=== PATIENT | male | born 1945 | race Caucasian/White ===

== ENCOUNTER → 2022-06-03 11:14 | Outpatient (CLI) | payer MEDICARE, SELFPAY ==
--- NOTE | 2022-06-03 11:23 | DI.CT.S_ITS ---
PROCEDURE: CT UE RT WO CON INDICATIONS: PRIMARY OSTEOARTHRITIS TECHNIQUE: Noncontrast 0.8 mm thick sections acquired from the acromioclavicular joint to the inferior scapula using [facility] CT shoulder protocol, with coronal and sagittal reformatting. COMPARISON: None. FINDINGS: Image quality: Excellent. Bones: [id number] acromioclavicular joint osteoarthritic changes are seen with joint space narrowing and subchondral sclerosis. Severe glenohumeral joint osteoarthritic changes are noted with extensive subchondral sclerosis, near complete loss of joint space and prominent inferior marginal osteophyte formation. No acute shoulder fracture or dislocation. No suspicious intraosseous lesions. Visualized right upper ribs are intact. Soft tissues: There is no full-thickness rotator cuff tendon rupture. No calcified intra-articular loose body is seen. No significant joint effusion or subacromial subdeltoid bursal fluid. No abnormal soft tissue calcifications. Mild supraspinatus muscle atrophy is seen on sagittal images. Visualized right upper lung field is clear. IMPRESSION: 1. Mild to moderate acromioclavicular joint osteoarthritis and severe glenohumeral joint osteoarthritis. No shoulder fracture or dislocation. No suspicious bony lesions. 2. No full-thickness rotator cuff tendon rupture. Mild supraspinatus muscle atrophy. 3. No significant joint effusion or subacromial subdeltoid bursal fluid. No abnormal soft tissue calcifications. No gross calcified intra-articular loose bodies. Dictated by: Flaquito Jaramillo M.D. on 06/03/2022 at 12:55 Approved by: Flaquito Jaramillo M.D. on 06/03/2022 at 13:03
[2022-06-03 13:40] LABS: Add Manual Diff / Slide Review NO; Basophils Absolute Auto 100 /uL (0-100); Basophils Percent Auto 1.1 % (0-2); Eosinophils Absolute Auto 100 /uL (0-450); Eosinophils Percent Auto 1.4 % (2-4); Hematocrit 45.9 % (41-53); Hemoglobin 15.2 g/dL (13.5-17.5); Lymphocytes Absolute Auto 2100 /uL (1100-4500); Lymphocytes Percent Auto 29.9 % (25-40); Mean Corpuscular HGB Conc 33.1 % (30-36); Mean Corpuscular Hemoglobin 33.1 PG (26-34); Mean Corpuscular Volume 99.9 fL (80-100); Monocytes Absolute Auto 800 /uL (0-900); Monocytes Percent Auto 11.6 % (3-14); Neutrophils Absolute Auto 3900 /uL (1500-7000); Platelet Count 202 X10^3/uL (150-400); Red Blood Cell Count 4.59 X10^6/uL (4.5-5.9); Red Cell Distribution Width 12.9 % (11.6-14.8); White Blood Cell Count 6.9 X10^3/uL (4.5-11.0)
[2022-06-03 14:38] LABS: BUN Creatinine Ratio 17.9 (6-22); Blood Urea Nitrogen 12 mg/dL (9-20); Calcium 9.1 mg/dL (8.4-10.2); Carbon Dioxide 26 mmol/L (22-32); Chloride 104 mmol/L (98-107); Estimated Glomerular Filt Rate > 60 mL/min (>60); Glucose 97 mg/dL (80-110); HEMOLYSIS 19 (0-50); Potassium 4.2 mmol/L (3.4-5.1); Sodium 140 mmol/L (137-145)
== END ==
PROVIDERS: Family Provider Family Medicine; PCP Family Medicine; Referring Provider Orthopaedic Surgery; Visit Provider Orthopaedic Surgery
DX: Z01.818 Encounter for other preprocedural examination (principal); Z01.812 Encounter for preprocedural laboratory examination; M19.011 Primary osteoarthritis, right shoulder
CPT/HCPCS: 36415; 73200; 80048; 85025; 93005

== ENCOUNTER 2022-07-14 09:28 | Inpatient (IN) | payer MEDICARE, SELFPAY ==
[2022-07-11 08:23] VITALS: BMI 30.7
[2022-07-14] VITALS (13 sets, daily range): BP systolic 107–143; BP diastolic 64–98; PULSE 65–91; RESP 14–22; TEMP 36–36.6; O2SAT 92–96; BMI 29.3
--- NOTE | 2022-07-14 10:00 | DI.RAD.S_ITS ---
PROCEDURE: XR SHOULDER RT 1V INDICATIONS: R Reverse TSA TECHNIQUE: One views of the shoulder were acquired. COMPARISON: SNO Outside Film, CR, XR SHOULDER 2+ VIEWS RIGHT, 05/02/2022, 8:32. FINDINGS: Bones: Single view demonstrates reverse shoulder arthroplasty components in place. The joint appears congruent. There is slight apparent widening at the AC joint. Rib arcs appear intact. Soft tissues: There are skin priscilla and expected intra-articular and soft tissue gas. The right lung appears fully inflated. IMPRESSION: 1. Expected appearance post right shoulder arthroplasty. 2. Right AC joint widening present previously. Dictated by: Madalyn Nguyen M.D. on 07/14/2022 at 17:38 Approved by: Madalyn Nguyen M.D. on 07/14/2022 at 17:39
[2022-07-14] MEDS: LACTATED RINGERS 1,000 ML 42 ML IV ×2 (11:02→15:21)
[2022-07-14 11:23] LABS: COVID19 -Nasal RAPID Negative (Negative)
--- NOTE | 2022-07-14 13:00 | PM.PREOP ---
Pre-operative Note Interval Note History & Physical reviewed/Exam performed by Physician: Yes Changes to H&P: No
--- NOTE | 2022-07-14 13:49 | SUR.PREOP ---
Block start time [1130] . Monitoring initiated and maintained throughout procedure. Oxygen and medications given per anesthesiologist instructions. Patient remained stable throughout procedure, no adverse reactions noted. Block end time [1140].
[2022-07-14] MEDS: TRANEXAMIC ACID 1,000 MG VIAL 1000 MG INJ (14:15)
[2022-07-14] MEDS: CEFAZOLIN 2 GM/100 ML PREMIX 100 ML IV (14:15)
--- NOTE | 2022-07-14 14:28 | SUR.OPER ---
Beach chair with Damian/Shelbi shoulder positioner. Lower body on padded OR bed. Head in foam padded head cradle, secured with straps. Non-operative arm secured <90 degrees abduction. Pillow under knees. Safety belt at thigh. Cloth tape over blanket over lower legs. Pt positioned per direction and supervision of Dr Allen.
[2022-07-14] MEDS: BUPIVACAINE 0.25% W/ EPI 30 ML VIAL 60 ML INJ (14:39)
--- NOTE | 2022-07-14 16:21 | PM.OP.1 ---
Operative Date/Time/Diagnoses Date of procedure: 07/14/22 Time of procedure: 16:22 Pre-op diagnosis: Right glenohumeral arthritis Post-op diagnosis: same Procedure & Clinicians Procedure: Right reverse total shoulder arthroplasty Same procedure as scheduled: Yes Indications: Indications: This is a 76-year-old male who has glenohumeral arthritis of the right shoulder for decades at this point he is very stiff. Symptoms have been present for years, insidious onset. Patient has failed conservative therapy including injections, physical therapy, anti-inflammatories and activity modification. After extensive discussion in clinic, they wished to go forward with surgery. Risks and benefits were described including the risk of infection, bleeding, damage to internal structures including nerves. We also discussed the risk of failure of surgery and the need for revision surgery as well as the risk of anesthesia. The patient expressed understanding with these risks and wished to go forward with surgery. Surgeon: Jovani Allen Power Driven Brush Maker: Rashmi Ahn Anesthesia Type: General Operative Notes Findings: Findings: Osteoarthritis of the glenoid and humeral head as well as a partially deficient rotator cuff very large osteophytes and severely limited range of motion on exam under anesthesia as noted on preoperative imaging and under direct visualization Closure Type: primary Specimen(s): none sent Prosthetic devices, grafts, tissues, transplants, or devices: 25 mm full wedge (angle 15?) base plate with a short post 36 mm standard glenosphere Standard perform humeral stem, size 3, short +0 concentric polyethylene Estimated Blood Loss (mL): 50 Blood products transfused: none Procedure in detail: Operative note: Patient was seen in the preoperative holding unit. The correct right shoulder was identified and marked with my initials. Again we discussed the risks and benefits of surgery and they wished to go forward with surgery. The patient was brought back to the operating room and placed supine on the operating table. He underwent smooth endotracheal intubation. All prominences were padded and they were placed into the beach chair position. Intravenous antibiotics were given. The right shoulder was then prepped with the standard sterile preparation and draping. A time-out was then performed in my initials were again identified on the correct shoulder. 1 g of IV tranexamic acid was given. A standard deltopectoral incision was made. Skin flaps were made. The cephalic vein was identified and retracted laterally. This was protected throughout the remainder of the case. Sharp dissection was made along the deltoid, subacromial and subcoracoid space to release adhesions. The conjoined tendon was identified and the axillary nerve was palpated and continuous using the tug test. It was protected throughout the remainder of the case. A brown retractor was placed underneath the deltoid muscle and a darach retractor underneath the conjoint tendon. The anterior circumflex artery and associated veins on the lower border of the subscapularis were identified and tied off using 0-Vicryl. The biceps tendon was identified in the bicipital groove. This was released from its sheath, and taken from its origin on the glenoid and tied into the pectoralis tendon for a solid tenodesis. We then began a subscapularis peel. The subscapularis was tagged with an Ethibond suture. A 360 degree circumferential release of the subscapularis was performed with protection of the axillary nerve. The coracohumeral ligament was released at the base of the coracoid. The coracoacromial ligament was left intact. The shoulder was then dislocated. Osteophytes were removed using combination of rongeur and osteotome. The rotator cuff was noted to be partially torn and mostly insufficient including essentially insufficient subscapularis tendon. An intramedullary guide was used set at version of 20?. Using an oscillating saw a conservative humeral head cut was made. Impaction reamers were reamed up to a size 3 stem set at angle 135 which is its [place] ankle. A neck protector was placed. Attention was then turned to the glenoid. After retracting the humeral head posteriorly a circumferential release was performed of the capsule with protection of the axillary nerve. The labrum was then released starting at the biceps anchor and going around the rim a small amount of triceps was released from the inferior glenoid. A center guide pin was then placed using the guide, followed by Reamer. After adequate cartilage was removed the center drill hole was drilled and measured. A short post was then malleted in place. The superior drill hole was drilled and filled in a nonlocking fashion, followed by the inferior and anterior holes in locking fashion. A 36 standard glenosphere was then selected and screwed into place onto the base plate. Turning back to the humerus, the humeral head was delivered and trialed with a standard +0 polyethylene. The arm was taken through range of motion and this was felt to be stable. The trial was then removed and a dilute Betadine wash was then performed with 1 L of sterile saline. Before placing the final implant, drill holes were made in the bicipital groove for the subscapularis repair, and sutures were passed through the drill holes. The final stem with high offset tray was then impacted into the humerus. The shoulder was then reduced and again brought through range of motion and was felt to be stable. The interval was then closed using 0-Vicryl. The subscapularis was then repaired using a modified racking hitch with niece loupes. The deltopectoral interval was then closed with #2 Ethibond. The skin was closed with 2-0 PDS and priscilla followed by Aquacel dressing. Patient was awoken from anesthesia and brought back to the postoperative recovery unit without issue. They were placed into a sling. Assisting participation: This operation could not have been safely performed (without compromising the technical results or length of the procedure) without the assistance of a skilled surgical elastic knitter hand frame. The surgical elastic knitter hand frame was medically necessary for proper positioning, retraction and manipulation of instruments, proper exposure, graft prep, and manipulation of tissue. Post-operative Plan for aftercare: Postoperative instructions: Sling to remain on for 6 weeks. No external rotation past neutral for 6 weeks. Okay for him to come off her shower. Okay to shower over the Aquacel dressing. If any water gets underneath the dressing, remove the dressing. First postoperative visit in 2 weeks.
[2022-07-14] MEDS: OXYCODONE IR 5 MG TABLET PO (17:07)
[2022-07-14] MEDS: CEFAZOLIN VIAL 1 GM in SODIUM CHLORIDE 0.9% 100 ML IV (22:26)
[2022-07-14] MEDS: DOCUSATE 100 MG CAPSULE PO (22:26)
[2022-07-15] MEDS: OXYCODONE IR 5 MG TABLET PO ×5 (00:06→14:40)
[2022-07-15 04:59] VITALS: BP 121/77; PULSE 86; RESP 19; TEMP 36.3; O2SAT 91
[2022-07-15 05:06] LABS: Hematocrit 41.4 % (41-53); Hemoglobin 14.2 g/dL (13.5-17.5); Mean Corpuscular HGB Conc 34.2 % (30-36); Mean Corpuscular Hemoglobin 34.1 PG (26-34); Mean Corpuscular Volume 99.5 fL (80-100); Platelet Count 167 X10^3/uL (150-400); Red Blood Cell Count 4.17 X10^6/uL (4.5-5.9); Red Cell Distribution Width 13.1 % (11.6-14.8); White Blood Cell Count 12.7 X10^3/uL (4.5-11.0)
[2022-07-15] MEDS: CEFAZOLIN VIAL 1 GM in SODIUM CHLORIDE 0.9% 100 ML IV (05:32)
--- NOTE | 2022-07-15 08:43 | CM.DANOTE ---
Initial DCP Assessment Note Pt is a 76 yo male, resident of [place], now POD#1 from right shoulder surgery by Dr Allen PCP: Shelby Delatorre Payer: Elsi BARNES Reviewed chart, pt has planned for DC home with family today, awaiting therapy recommendations. Patient indp and active at baseline No barriers identified from chart review to patient's safe discharge home w/family to assist; likely close outpatient f/u recommended. CM team will plan to follow closely today for continued assessment of DC needs and coordination of plan ODETTE Raya Discharge Planning/Care Management CM Discharge Assessment Start: 07/15/22 08:39 Freq: Status: Active Protocol: Document 07/15/22 08:40 HUSSEIN (Rec: 07/15/22 08:43 HUSSEIN [id number]) Discharge Planning Assessment Assigned Net Maker ODETTE Canela DPOA/Assigned Designee Name Awilda Go, spouse Contact Information [phone] or cell [phone] Advance Directives? Yes Advance Directives on File No History Provided By Patient,Medical Record Prior Living Arrangements House Household Members spouse Type of transporation used prior to Drives own vehicle admit Independent with ADL's Yes Is patient alert and oriented? Yes Barriers to Discharge No Discharge Plan Home Transportation Arrangement Spouse Referrals Initiated None needed
--- NOTE | 2022-07-15 08:51 | P.DS_ITS ---
History of Present Illness History of Present Illness Chief complaint: Right TSA Narrative: Patient is awake in upright sitting in bed this morning. He states his shoulder is a little bit more sore today after his block wore off. He is currently icing his shoulder. States that he had more tingling in his fingers immediately after surgery but this is decreased significantly. Only complains of some residual tingling in his thumb. He states his is [place] ferry this [place] will be here later. Discharge Providers Provider Date of admission: 07/14/22 09:28 Discharge Date: 07/15/22 Primary care physician: VINICIO Paris Consults: 07/08/22 14:22 Consult to Anesthesiology Routine Comment: Consulting Provider: Anesthesiologist Reason for consultation: Regional block for post operative pain control 07/11/22 09:54 Consult to Anesthesiology Routine Comment: Consulting Provider: Anesthesiologist Reason for consultation: PAC courtesy re: Abnormal pre-op EKG 07/14/22 16:39 Consult to Discharge Planning Routine Comment: Consult to Physical Therapy Evaluate & Treat Comment: Physician Instructions: Evaluate and Treat Discharge provider: Anayeli Chawla PA-C Summary Hospital Course Discharge Diagnosis: Status post right reverse total shoulder arthroplasty Hospital Course: Operative Date/Time/Diagnoses Date of procedure: 07/14/22 Time of procedure: 16:22 Pre-op diagnosis: Right glenohumeral arthritis Post-op diagnosis: same Procedure & Clinicians Procedure: Right reverse total shoulder arthroplasty Same procedure as scheduled: Yes Indications: Indications:? This is a 76-year-old male who has glenohumeral arthritis of the right shoulder for decades at this point he is very stiff.? Symptoms have been present for years, insidious onset.? Patient has failed conservative therapy including injections, physical therapy, anti-inflammatories and activity modification.? After extensive discussion in clinic, they wished to go forward with surgery.? Risks and benefits were described including the risk of infection, bleeding, damage to internal structures including nerves.? We also discussed the risk of failure of surgery and the need for revision surgery as well as the risk of anesthesia.? The patient expressed understanding with these risks and wished to go forward with surgery. Surgeon: Jovani Allen Teletray Operator: Rashmi Ahn Anesthesia Type: General Operative Notes Findings: Findings:? Osteoarthritis of the glenoid and humeral head as well as a partially deficient rotator cuff very large osteophytes and severely limited range of motion on exam under anesthesia as noted on preoperative imaging and under direct visualization Closure Type: primary Specimen(s): none sent Prosthetic devices, grafts, tissues, transplants, or devices: 25 mm full wedge (angle 15?) base plate with a short post 36 mm standard glenosphere Standard perform humeral stem, size 3, short +0 concentric polyethylene Estimated Blood Loss (mL): 50 Blood products transfused: none Exam Vital Signs (past 8 hours): - 07/15/22 04:59 Temperature 97.3 F L Pulse Rate 86 Respiratory Rate 19 Blood Pressure 121/77 Pulse Oximetry 91 Fraction of Inspired Oxygen 24 SaO2/FiO2 Ratio 391 Oxygen Delivery Method Nasal Cannula Oxygen Flow Rate 1 Narrative Exam Narrative: Awake, alert, and oriented. Intraoperative dressing clean, dry, and intact. Strength and sensation intact to right upper extremity. No significant bruising or swelling noted. Objective Labs 07/15/22 04:48 Labs: Laboratory Results - last 24 hr 07/14/22 07/15/22 10:51 04:48 WBC 12.7 H RBC 4.17 L Hgb 14.2 Hct 41.4 MCV 99.5 MCH 34.1 H MCHC 34.2 RDW 13.1 Plt Count 167 SARS-CoV-2 (PCR) Negative [facility] Medical History GERD (gastroesophageal reflux disease) History of esophageal dilatation Osteoarthritis Surgical History H/O vasectomy History of tonsillectomy Status post appendectomy Family History Father Heart disease Grandmother Mental health problem Grandfather Mental health problem Social History household members: spouse Smoking Status: Never smoker alcohol intake: current Discharge Assessment & Plan Assessment and Plan Assessment: Patient is progressing as expected after right reverse total shoulder arthroplasty. His pain is well controlled with medication. Plan of Treatment: Plan to discharge home today once cleared by Physical therapy. Patient has aspirin, ibuprofen, and Tylenol at home. We will be discharging with prescription for oxycodone. Patient plans to do therapy once cleared by Dr. Allen. Patient instructed to keep dressing clean, dry, and intact until his 2 week follow-up with orthopedics. Discharge Plan Discharge Plan Patient Disposition: Home Provider Discharge Comment: Discharge when safe and cleared by Physical therapy Discharge orders & Medications Prescriptions: New oxycodone 5 mg Tablet 5 mg PO Q4-6H PRN (Reason: Pain, Mild (1-3)) Qty: 40 0RF Continued omega 6-ocn-drq-fish oil [Fish Oil] 1,000 mg (120 mg-180 mg) Capsule 3 cap PO DAILY Qty: 0 simvastatin 20 MG tablet 20 mg PO HS Qty: 90 1RF naproxen sodium [Aleve] 220 mg Capsule 220 mg PO BID PRN (Reason: Pain) valacyclovir 1,000 MG tablet 1,000 mg PO BID PRN (Reason: Breakouts) omeprazole 20 MG capsule,delayed release(DR/EC) 29 mg PO QDAY sildenafil (pulm.hypertension) 20 MG tablet 20 mg PO DAILY PRN (Reason: Sexual Activity) Follow up/Referrals: Jovani Allen MD [Physician] - As previously scheduled (Follow up corky/ Saroj Palmer on 07/27/2022 @ 3:00 pm at [facility] office in [place].) Shelby Delatorre ARNP [Primary Care Provider] - Diet/Activity/Treatments Diet: Diet as Tolerated Activity: Sling at most times. May have off to shower and do careful elbow ROM. Cold/Heat Therapy: Ice to shoulder as needed for pain. Skin/Wound/Dressing Care Report to your healthcare provider any signs of infection, such as:: chills, fever, night sweats, unusual drainage and unusual redness Dressing: May shower. Leave Aquacel dressing in place until follow up in office. No bathing or otherwise soaking incision. Call the office if the dressing becomes saturated inside. Visit Report/Discharge Packet Instructions: DI for Shoulder Replacement Stand Alone Forms: Patient Portal/API, Stroke Signs & Symptoms, Surgery Discharge Discharge Data Primary Care Provider: Shelby Delatorre VTE Deep Vein Thrombosis/Pulmonary Embolism Present on Admission: No
--- NOTE | 2022-07-15 09:30 | PT.IIE ---
Current Diagnoses Primary osteoarthritis, right shoulder (07/14/22) Surgery Performed Operation Date: 07/14/22 12:45 Actual Procedures p Total Shoulder Arthroplasty - Reverse w. biceps tenodesis(Right) - Jovani Allen MD Surgical History (Last Reviewed 07/15/22 @ 08:56 by Anayeli Chawla PA-C) H/O vasectomy History of tonsillectomy Status post appendectomy Medical History (Last Reviewed 07/15/22 @ 08:56 by Anayeli Chawla PA-C) GERD (gastroesophageal reflux disease) History of esophageal dilatation Osteoarthritis Physical Therapy Inpatient Evaluation/Re-Eval M1 PT/OT-IP Prior Functional Status Start: 07/15/22 13:52 Freq: NEEDED Status: Active Protocol: Document 07/15/22 09:30 AB (Rec: 07/15/22 14:03 AB [email or web address]) Medical Review Prior Functional Status Medical History Reviewed Yes Communication able to make needs known Mobility and Gait pt stated that he is independent with all mobilities and ambulation without AD Social History Household Members spouse Living Arrangements House Number of Floors (Floors) Two Floors Number of Stairs To Enter/Railing? pt stays on the main level of the house 3 steps 1 rail to enter the house (rail is in the middle of the stairs) Home Environment High Toilet,Walk in Shower Home Equipment Shower Seat without Backrest, Hand Held Shower,Grab Bars Near Toilet,Grab Bars In Shower Additional Social History Comment pt stated that he plays to sleep on a chair with a foot stool for support M2 PT-IP Current Condition Start: 07/15/22 13:52 Freq: NEEDED Status: Active Protocol: Document 07/15/22 09:30 AB (Rec: 07/15/22 14:03 AB [email or web address]) Physical Therapy Current Condition Current Condition Evaluation Date 07/15/22 Treatment Diagnosis s/p R TSA reverse; difficulty in walking Onset Date 07/14/22 M3 PT-IP Subjective Start: 07/15/22 13:52 Freq: NEEDED Status: Active Protocol: Document 07/15/22 09:30 AB (Rec: 07/15/22 14:03 AB [email or web address]) Subjective Physical Therapy Visit Type Type Initial Evaluation Visit Start Time 09:30 Visit Stop Time 10:03 Total Visit Minutes 33 Number of TREATMENT PLANT OPERATOR Visits 0 Physical Therapy Visit Comments Patient Comments agreeable to do PT Therapy Pain Assessment Pain When Pain Assessed At Rest Pain Present Pain Present Pain Reported Location Right Shoulder Intensity 3 Scale Used Numeric (0 - 10) Pain Management Techniques Distraction,Modification of Treatment,Re-positioning, Timing of Activity with Medications M4 PT-IP Mobility and Gait Start: 07/15/22 13:52 Freq: NEEDED Status: Active Protocol: Document 07/15/22 09:30 AB (Rec: 07/15/22 14:03 AB [email or web address]) PT-Bed Mobility Assessment Supine to Sit Supine to Sit Standby Assistance PT-Transfer Assessment Sit to and From Stand Sit to and from Stand Standby Assistance Equipment Transfer Assistive Device None,Gait Belt Orthotic/Prosthetic Devices or Brace: Yes Transfers Transfer Destination Chair Transfer Technique Stand Step Pivot Transfer Ability Level of Assist Standby Assistance,Use of Upper Extremities Comments Mobility Comments BP in supine: 124/77. educated pt on shoulder precautions. spouse in room with pt. pt completed supine to sit SBA. completed ambulation in room ~ 20 ft SBA and pt sat on the chair. educated pt and spouse on sling management, pendulum, elbow/wrist/hand exercises. pt comleted pendulum, elbow/ wrist/hand exercises. educated spouse on sling management and was able to put sling on pt. pt c/o nausea after doing pendulum. sat back on chair. BP checked: 97 /56. O2 sat 89%. pt rested. nursing staff made aware. Checked BP again after ~ 3 min : 82/56 O2 sat improved to 96%. Left pt with NAC. Gait Assessment Gait Gait Assistance Required: Standby Assistance Distance (Feet) 20 Able to Maintain Weight Bearing Status No During Gait Assistive Devices Assistive Device None Orthotic/Prosthetic Devices or Brace: Yes Factors Limiting Gait Function Factors Limiting Gait Function Decreased Activity Tolerance, Decreased Strength,Limited Range of Motion,Pain,Poor Balance,Poor Safety Awareness PT-Balance Assessment Sitting Balance and Reactions Static Sitting Balance Ability Normal Dynamic Sitting Balance Ability Normal Standing Balance and Reactions Static Standing Balance Ability Good Dynamic Standing Balance Ability Good Device Used without AD M5 PT-IP Objective Assessments Start: 07/15/22 13:52 Freq: NEEDED Status: Active Protocol: Document 07/15/22 09:30 AB (Rec: 07/15/22 14:03 AB [email or web address]) Orientation Orientation/Cognition Level of Alertness Alert Orientation Name,Place,Situation Language Function Ability No Deficits Noted Safety Awareness Understands Safety Issues Memory Description No Deficits Noted Gross Range of Motion Lower Extremity ROM Assessment Within Functional Limits Strength Lower Extremity Strength Assessment Within Functional Limits Sensation Assessment Sensation Gross Sensation WNL Muscle Tone Muscle Tone WNL Yes M6 PT-IP Treatment Start: 07/15/22 13:52 Freq: NEEDED Status: Active Protocol: Document 07/15/22 09:30 AB (Rec: 07/15/22 14:03 AB [email or web address]) Physical Therapy Treatment Education Education Provided Precautions,Weight Bearing Status,Post-Op Packet,Safety M7 PT-IP Assessment and Plan Start: 07/15/22 13:52 Freq: NEEDED Status: Active Protocol: Document 07/15/22 09:30 AB (Rec: 07/15/22 14:03 AB [email or web address]) PT Summary Assessment and Plan Potential Rehabilitation Potential Good Status of Condition at Evaluation Evolving Summary Impairments Pain,ROM,Strength,Balance, Coordination,Sensation,Tone, Cognition,Bed Mobility, Transfers,Gait,Activity Tolerance Assessment Summary pt requiring SBA but unable to tolerate much activity with decrease in BP to 82/56. caregiver training was conducted. stair climbing training still needs to be completed. pt plans to go home later today. will continue to assess. Goals Bed Mobility Goal Independent Transfer Goal Independent Gait Goal Independent Gait Distance 200 Other Goals up/down 3 steps L rail ascending mod I Days to Meet Goals 3 Frequency of Treatment Frequency Of Treatment Twice a Day Treatment Plan Physical Therapy Treatment Plan Bed Mobility Training,Transfer Training,Gait Training, Therapeutic Exercise,Balance Retraining,Post Op Education, Discharge Planning,Hot or Cold Pack,Neuromuscular Re-ed, Coordination Retraining,Manual Therapy Precautions Shoulder Precautions Sling,PROM,Internal Rotation to Body,No External Rotation, No Abduction,Forward Flexion to 90 degrees,Pendulums Weight Bearing Status Weight Bearing Status Non-Weight Bearing Allowed Weight Bearing Amount (enter % RUE NWB or #) (%) Recommendations To Nursing Amount of Assist Needed 1 Person Assist Discharge Recommendations PT Discharge Recommendations Home with Assistance, Outpatient PT Transportation Needs at Discharge Private Vehicle
[2022-07-15 09:35] VITALS: BP 124/77; PULSE 86; RESP 18; TEMP 36.4; O2SAT 91
[2022-07-15] MEDS: DOCUSATE 100 MG CAPSULE PO (10:03)
[2022-07-15 12:33] VITALS: BP 119/75; PULSE 80; RESP 18; TEMP 36.8; O2SAT 92
--- NOTE | 2022-07-15 16:05 | PC.NURSE ---
Addendum entered by Keven Veliz R.N. 07/15/22 16:15: Left unit at approx 1615. Original Note: Day shift: Paperwork signed and all questions answered. Pt feeling better this afternoon. Ambulated in halls and worked with PT w/ no nausea of light headedness. BP WNL now. Pain well controlled per AUG. CMS intact. Spouse in room for d/c teachings. They [place] catch the 1719 ferry back to [place] today. Pt has all personal belongings. Spouse has picked up scripts from their pharmacy already today. Will be taken to car via per protocol. Spouse will be driving.
--- NOTE | 2022-07-15 18:05 | PT.IPTN ---
Current Diagnoses Primary osteoarthritis, right shoulder (07/14/22) Surgery Performed Operation Date: 07/14/22 12:45 Actual Procedures p Total Shoulder Arthroplasty - Reverse w. biceps tenodesis(Right) - Jovani Allen MD Physical Therapy Treatment Note M2 PT-IP Current Condition Start: 07/15/22 13:52 Freq: NEEDED Status: Discharge Protocol: Document 07/15/22 09:30 AB (Rec: 07/15/22 14:03 AB [email or web address]) Physical Therapy Current Condition Current Condition Evaluation Date 07/15/22 Treatment Diagnosis s/p R TSA reverse; difficulty in walking Onset Date 07/14/22 M3 PT-IP Subjective Start: 07/15/22 13:52 Freq: NEEDED Status: Discharge Protocol: Document 07/15/22 17:50 BETHANY (Rec: 07/15/22 18:05 LJ [email or web address]) Subjective Physical Therapy Visit Type Type Treatment Note Visit Start Time 14:51 Visit Stop Time 15:23 Total Visit Minutes 32 Notes in room for CGT BP 132/83 Number of SENIOR CREDIT ANALYST Visits 1 Physical Therapy Visit Comments Patient Comments agreeable to do PT Therapy Pain Assessment Pain When Pain Assessed At Rest Pain Present Pain Present Pain Reported M4 PT-IP Mobility and Gait Start: 07/15/22 13:52 Freq: NEEDED Status: Discharge Protocol: Document 07/15/22 17:50 BETHANY (Rec: 07/15/22 18:05 BETHANY [id number]) PT-Transfer Assessment Sit to and From Stand Sit to and from Stand Standby Assistance Equipment Transfer Assistive Device None Orthotic/Prosthetic Devices or Brace: Yes Transfers Transfer Destination Chair Transfer Technique ambulated Transfer Ability Level of Assist Standby Assistance,Use of Upper Extremities Comments Mobility Comments sitting on chair 132/83 Reviewed shoulder precautions; assisted with assisting pt with dressing, sling management, and performing pendulum swing with RUE Gait Assessment Gait Gait Assistance Required: Standby Assistance Distance (Feet) 400 Assistive Devices Assistive Device None Orthotic/Prosthetic Devices or Brace: Yes Factors Limiting Gait Function Factors Limiting Gait Function Decreased Activity Tolerance, Decreased Strength,Limited Range of Motion,Pain Comments Gait Comments Pt ambulated SBA from room to stairs and back. Normal gait pattern with RUE in sling Stair Climbing Assessment Evaluation Level of Assist On Stairs Standby Assistance Devices Stair Climbing Assistive Devices Left Railing,Right Railing Technique/Endurance Stair Climbing Direction Ascend and Descend Stair Climbing Technique Step Over Step Number of Steps Climbed 3 Stair Climbing Set # Repetitions (reps) 4 Comments Stair Climbing Comments Pt safely able to navigate stairs using rail in left hand up and down which is the set up at home M5 PT-IP Objective Assessments Start: 07/15/22 13:52 Freq: NEEDED Status: Discharge Protocol: Document 07/15/22 09:30 AB (Rec: 07/15/22 14:03 AB [email or web address]) Orientation Orientation/Cognition Level of Alertness Alert Orientation Name,Place,Situation Language Function Ability No Deficits Noted Safety Awareness Understands Safety Issues Memory Description No Deficits Noted Gross Range of Motion Lower Extremity ROM Assessment Within Functional Limits Strength Lower Extremity Strength Assessment Within Functional Limits Sensation Assessment Sensation Gross Sensation WNL Muscle Tone Muscle Tone WNL Yes M6 PT-IP Treatment Start: 07/15/22 13:52 Freq: NEEDED Status: Discharge Protocol: Document 07/15/22 17:50 LJ (Rec: 07/15/22 18:05 [id number]) Physical Therapy Treatment Education Education Provided Precautions,Weight Bearing Status,Post-Op Packet,Safety M7 PT-IP Assessment and Plan Start: 07/15/22 13:52 Freq: NEEDED Status: Discharge Protocol: Document 07/15/22 17:50 LJ (Rec: 07/15/22 18:05 [id number]) PT Summary Assessment and Plan Potential Rehabilitation Potential Good Status of Condition at Evaluation Evolving Summary Impairments Pain,ROM,Strength,Activity Tolerance Progress Towards Goals Goals Met Assessment Summary Pt able to tolerate all mobility and ambulation without increase in BP. Demonstrated safe dressing and donning and doffing sling with assist. Pt safe to DC home today. Goals Bed Mobility Goal Independent Transfer Goal Independent Gait Goal Independent Gait Distance 200 Other Goals up/down 3 steps L rail ascending mod I Days to Meet Goals 3 Frequency of Treatment Frequency Of Treatment Twice a Day Treatment Plan Physical Therapy Treatment Plan Bed Mobility Training,Transfer Training,Gait Training, Therapeutic Exercise,Balance Retraining,Post Op Education, Discharge Planning,Hot or Cold Pack,Neuromuscular Re-ed, Coordination Retraining,Manual Therapy Precautions Shoulder Precautions Sling,PROM,Internal Rotation to Body,No External Rotation, No Abduction,Forward Flexion to 90 degrees,Pendulums Weight Bearing Status Weight Bearing Status Non-Weight Bearing Allowed Weight Bearing Amount (enter % RUE NWB or #) (%) Recommendations To Nursing Amount of Assist Needed 1 Person Assist Discharge Recommendations PT Discharge Recommendations Home with Assistance, Outpatient PT Transportation Needs at Discharge Private Vehicle
== END 2022-07-15 16:29 | disposition home or self-care (01) | DRG 483 ==
PROVIDERS: Admitting Provider Orthopaedic Surgery; Family Provider Family Medicine; PCP Nurse Practitioner Family; Referring Provider Orthopaedic Surgery; Visit Provider Orthopaedic Surgery
PROC: 0RRJ00Z Replacement of Right Shoulder Joint with Reverse Ball and Socket Synthetic Substitute, Open Approach (ICD-10-PCS; CPT 23472; principal; 2022-07-14 12:45)
DX: M19.011 Primary osteoarthritis, right shoulder (principal); M75.111 Incomplete rotator cuff tear or rupture of right shoulder, not specified as traumatic; K21.9 Gastro-esophageal reflux disease without esophagitis; Z20.822 Contact with and (suspected) exposure to COVID-19
CPT/HCPCS: 36415; 64450; 73020; 85027; 87635; 94760; 97116; 97162; 97530; C1776; C9803; J0690; J1100; J2250; J2405; J2704; J3010

== ENCOUNTER → 2023-06-08 15:22 | Outpatient (CLI) | payer MEDICARE, SELFPAY ==
[2022-07-14 17:45] VITALS: BMI 29.3
--- NOTE | 2023-06-08 | DI.CT.S_ITS ---
PROCEDURE: CT UE LT WO CON INDICATIONS: Primary osteoarthritis, left shoulder TECHNIQUE: Noncontrast 1-1.5 mm thick sections acquired from the acromioclavicular joint to the inferior scapula, with coronal and sagittal reformatting. COMPARISON: [facility], [place], XR SHOULDER 2+ VIEWS LEFT, 05/11/2023, 13:38. FINDINGS: Image quality: Excellent. Bones: No acute osseous fracture or dislocation. Full-thickness joint space narrowing is seen at the glenohumeral joint with subchondral sclerosis, subchondral cystic changes, marginal osteophyte formation, and mild remodeling of the articular surfaces. There is no significant glenoid retroversion or anteversion. Gsod-za-enyhekba degenerative changes are seen at the acromioclavicular joint. Degenerative changes also noted at the sternoclavicular joint. An old healed left-sided rib fracture is noted. No acute displaced rib fracture. Soft tissues: Small glenohumeral effusion. A 14 mm ossified loose body is seen along the posterior glenohumeral joint line. There is no significant rotator cuff muscle atrophy. The tendons, ligaments, articular cartilages, and labrum are not well evaluated on standard CT. The musculature surrounding the shoulder is otherwise normal in bulk. The included portions of the lung are clear. IMPRESSION: 1. Severe glenohumeral osteoarthrosis as described in the body of the report without significant glenoid retroversion or anteversion. 2. Small glenohumeral effusion with a 14 mm ossified loose body in the intercondylar notch. 3. Eris-nx-fwwnwulp acromioclavicular joint osteoarthrosis. Approved by: Reinier Guillen M.D. on 06/09/2023 at 10:06
== END ==
PROVIDERS: Family Provider Family Medicine; PCP Family Medicine; Referring Provider Orthopaedic Surgery; Visit Provider Orthopaedic Surgery
DX: M19.012 Primary osteoarthritis, left shoulder (principal); M25.412 Effusion, left shoulder; M24.012 Loose body in left shoulder
CPT/HCPCS: 73200

== ENCOUNTER 2023-07-27 10:36 | Inpatient (IN) | payer OTHER, SELFPAY ==
[2022-07-14 17:45] VITALS: BMI 29.3
[2023-07-13 13:42] VITALS: BMI 29.1
--- NOTE | 2023-07-27 06:00 | DI.RAD.S_ITS ---
PROCEDURE: XR SHOULDER LT 1V INDICATIONS: RTSA TECHNIQUE: Single views of the shoulder were acquired. COMPARISON: [facility], CR, XR SHOULDER RT 1V, 07/14/2022, 16:56. FINDINGS: Bones: Reverse total shoulder arthroplasty components are in place. No unexpected fractures or malalignment. Soft tissues: Expected soft tissue gas. The visible left lung volumes are low. IMPRESSION: Expected appearance post shoulder arthroplasty. Dictated by: Madalyn Nguyen M.D. on 07/27/2023 at 17:07 Approved by: Madalyn Nguyen M.D. on 07/27/2023 at 17:08
[2023-07-27 11:10] VITALS: BP 155/90; PULSE 64; RESP 16; TEMP 36.2; O2SAT 98; BMI 29.1
--- NOTE | 2023-07-27 12:02 | PM.PREOP ---
Pre-operative Note Interval Note History & Physical reviewed/Exam performed by Physician: Yes Changes to H&P: No
[2023-07-27] MEDS: ACETAMINOPHEN 325 MG TABLET 975 MG PO (12:14)
[2023-07-27] MEDS: LACTATED RINGERS 1,000 ML 42 ML IV ×2 (12:19→14:25)
[2023-07-27] MEDS: CEFAZOLIN 2 GM/100 ML PREMIX 100 ML IV (13:01)
[2023-07-27] MEDS: TRANEXAMIC ACID 1,000 MG VIAL 2000 MG INJ ×2 (13:07→14:16)
[2023-07-27] MEDS: BUPIVACAINE 0.5% (PF) 30 ML, EPINEPHrine 0.15 MG INJ (13:24)
--- NOTE | 2023-07-27 13:39 | SUR.OPER ---
Beach chair with [employer]tron shoulder positioner. Lower body on padded OR bed. Head in foam padded head cradle, secured with straps. Non-operative arm secured <90 degrees abduction. Pillow under knees. Safety belt at thigh. Cloth tape over blanket over lower legs.
--- NOTE | 2023-07-27 14:43 | P.OP_ITS ---
Operative Date/Time/Diagnoses Date of procedure: 07/27/23 Time of procedure: 14:43 Pre-op diagnosis: Left glenohumeral arthritis Post-op diagnosis: same Procedure & Clinicians Procedure: Left reverse total shoulder arthroplasty Same procedure as scheduled: Yes Indications: Indications: This is a 77-year-old male who has left glenohumeral arthritis. Symptoms have been present for years, insidious onset. Patient has failed conservative therapy including injections, physical therapy, anti-inflammatories and activity modification. After extensive discussion in clinic, they wished to go forward with surgery. Risks and benefits were described including the risk of infection, bleeding, damage to internal structures including nerves. We also discussed the risk of failure of surgery and the need for revision surgery as well as the risk of anesthesia. The patient expressed understanding with these risks and wished to go forward with surgery. Surgeon: Jovani Allen Surgical Garment Fitter: Patricia Baker Anesthesia Type: General Operative Notes Findings: Findings: Osteoarthritis of the glenoid and humeral head, intact rotator cuff, as noted on preoperative imaging and under direct visualization Closure Type: primary Specimen(s): none sent Prosthetic devices, grafts, tissues, transplants, or devices: Tornier implants Base plate: standard 25 mm, +3 mm offset Glenosphere: 39 mm Stem: Perform 3 Poly: +0 concentric Estimated Blood Loss (mL): 50 Procedure in detail: Patient was seen in the preoperative holding unit. The correct left shoulder was identified and marked with my initials. Again we discussed the risks and benefits of surgery and they wished to go forward with surgery. The patient was brought back to the operating room and placed supine on the operating table. Smooth endotracheal intubation was performed by anesthesia. All prominences were padded and they were placed into the beach chair position. Intravenous antibiotics were given. The left shoulder was then prepped with the standard sterile preparation and draping. A time-out was then performed in my initials were again identified on the correct shoulder. 1 g of IV tranexamic acid was given. A standard deltopectoral incision was made. Skin flaps were made. The cephalic vein was identified and retracted laterally. This was protected throughout the remainder of the case. Sharp dissection was made along the deltoid, subacromial and subcoracoid space to release adhesions. The conjoined tendon was identified and the axillary nerve was palpated and continuous using the tug test. It was protected throughout the remainder of the case. A brown retractor was placed underneath the deltoid muscle and a darach retractor underneath the conjoint tendon. The anterior circumflex artery and associated veins on the lower border of the subscapularis were identified and tied off using 0-Vicryl. The biceps tendon was identified in the bicipital groove. This was released from its sheath, and taken from its origin on the glenoid and tied into the pectoralis tendon for a solid tenodesis. We then began a subscapularis peel. The subscapularis was tagged with an Ethibond suture. A 360 degree circumferential release of the subscapularis was performed with protection of the axillary nerve. The coracohumeral ligament was released at the base of the coracoid. The coracoacromial ligament was left intact. The shoulder was then dislocated. Osteophytes were removed using combination of rongeur and osteotome. The rotator cuff was noted to be intact. An intramedullary guide was used set at version of 30?. Using an oscillating saw a conservative humeral head cut was made. Impaction reamers were reamed up to a size 3 stem with a built-in angle 135?. A neck protector was placed. Attention was then turned to the glenoid. After retracting the humeral head posteriorly a circumferential release was performed of the capsule with protection of the axillary nerve. The labrum was then released starting at the biceps anchor and going around the rim a small amount of triceps was released from the inferior glenoid. A center guide pin was then placed using the guide, followed by Reamer. After adequate cartilage was removed the center drill hole was drilled and measured. The base plate was then implanted and screwed into place. The superior drill hole was drilled and filled in a nonlocking fashion, followed by the posterior and anterior holes in locking fashion, the inferior hole was filled in a nonlocking fashion. A 39 glenosphere was then selected and screwed into place onto the base plate. Turning back to the humerus, the humeral head was delivered and trialed with a 0 concentric. The arm was taken through range of motion and this was felt to be stable. The trial was then removed and a dilute Betadine wash was then performed with 1 L of sterile saline. Before placing the final implant, drill holes were made in the bicipital groove for the subscapularis repair, and sutures were passed through the drill holes. The final stem was then impacted into the humerus. The shoulder was then reduced and again brought through range of motion and was felt to be stable. The interval was then closed using #2 Ethibond. The subscapularis was then repaired using a modified racking hitch with nice loupes. The deltopectoral interval was then closed with #2 Ethibond. The skin was closed with 2-0 Vicryl and Monocryl followed by Aquacel dressing. Patient was awoken from anesthesia and brought back to the postoperative recovery unit without issue. They were placed into a sling. Assisting participation: This operation could not have been safely performed (without compromising the technical results or length of the procedure) without the assistance of a skilled hand frame surgical elastic knitter. The hand frame surgical elastic knitter was medically necessary for proper positioning, retraction and manipulation of instruments, proper exposure, graft prep, and manipulation of tissue. Complications: none Post-operative Condition: stable Disposition: PACU Plan for aftercare: Postoperative instructions: Sling to remain on for 6 weeks. No external rotation past neutral for 6 weeks. Okay for the sling to come off for shower. Okay to shower over the Aquacel dressing. If any water gets underneath the dressing, remove the dressing. First postoperative visit in 2 weeks.
[2023-07-27 14:51] VITALS: BP 132/78; PULSE 78; RESP 25; O2SAT 96
[2023-07-27 15:02] VITALS: BP 132/76; PULSE 77; RESP 12; O2SAT 92
[2023-07-27 15:10] VITALS: BP 129/79; PULSE 77; RESP 14; O2SAT 100
== END 2023-07-27 15:40 | disposition home or self-care (01) | DRG 483 ==
PROVIDERS: Admitting Provider Orthopaedic Surgery; Family Provider Family Medicine; PCP Family Medicine; Referring Provider Orthopaedic Surgery; Visit Provider Orthopaedic Surgery
PROC: 0RRK00Z Replacement of Left Shoulder Joint with Reverse Ball and Socket Synthetic Substitute, Open Approach (ICD-10-PCS; CPT 23472; principal; 2023-07-27 12:45)
DX: M19.012 Primary osteoarthritis, left shoulder (principal); Z86.711 Personal history of pulmonary embolism
CPT/HCPCS: 64415; 73020; C1776; J0171; J0330; J0690; J2405; J2704; J3010

== ENCOUNTER 2023-07-28 06:15 | Emergency (ER) | payer OTHER, SELFPAY ==
[2022-07-14 17:45] VITALS: BMI 29.3
[2023-07-28 06:57] VITALS: BP 155/95; PULSE 94; RESP 17; TEMP 36.3; O2SAT 93; BMI 29.9
--- NOTE | 2023-07-28 07:22 | ED.EXTPRO ---
HPI - Extremity Problem General Chief complaint: Extremity Problem,Nontraumatic Stated complaint: should replacement yest and pain meds not working Time Seen by Provider: 07/28/23 06:24 Source: patient Mode of arrival: Ambulatory History of Present Illness HPI Narrative: Patient here with for complaints of left shoulder pain. Patient is postop day 1 status post left reverse total shoulder arthroplasty done here yesterday with Orthopedics. He states his pain was doing well. He had same procedure in his right shoulder last year and did well. However the anesthetic and nerve block wore off last night around 10:00 p.m.. Around 1:00 a.m./3:00 a.m. pain increased and he took his pain medication without relief. Currently pain 7/10. He thinks he should have taken his pain medication before they anesthetic/nerve block wore off. No complaints of hand pain. He states he is able to move his hand now after the anesthetic wore off. No fever. He was prescribed oxycodone 5 mg to take 1 tablet every 4-6 hours. However, he may need a higher dose, I reviewed with them taking 10 mg every 6 hours for the 1st 24 hours for pain control and then he can transition back to 5 mg every 4-6 hours. I will write him a prescription for 10 mg tablets for short course. Related Data Home Medications Medication Instructions Recorded Confirmed omega 0-omx-pjc-fish oil 1,000 mg 3 cap PO DAILY ##0 11/29/10 07/27/23 (120 mg-180 mg) capsule (Fish Oil) naproxen sodium 220 mg capsule 220 mg PO BID PRN Pain 07/11/22 07/27/23 (Aleve) omeprazole 20 mg capsule,delayed 20 mg PO QDAY 07/11/22 07/27/23 release sildenafil (pulm.hypertension) 20 20 mg PO DAILY PRN Sexual Activity 07/11/22 07/27/23 mg tablet valacyclovir 1 gram tablet 1,000 mg PO BID PRN Breakouts 07/11/22 07/27/23 acetaminophen 500 mg tablet 1,000 mg PO DAILY PRN Pain 07/13/23 07/27/23 apixaban 5 mg tablet (Eliquis) 5 mg PO BID 07/13/23 07/27/23 Previous Rx's Medication Instructions Recorded simvastatin 20 mg tablet 20 mg PO HS #90 tabs 01/31/17 hydrocodone 5 mg-acetaminophen 325 1 tab PO Q6H PRN pain #20 tabs 07/27/23 mg tablet ondansetron HCl 4 mg tablet 4 mg PO Q8H PRN nausea and 07/27/23 vomiting #10 tabs oxycodone-acetaminophen 10 mg-325 1 tab PO Q6H PRN pain #10 tabs 07/28/23 mg tablet (Endocet) Allergies Allergy/AdvReac Type Severity Reaction Status Date / Time pravastatin [PRAVASTATIN] Allergy Mild MYALGIAS Verified 07/27/23 11:05 Review of Systems Review of Systems Narrative: GENERAL: negative chills, fatigue, malaise, fever, sweats. HEENT: negative sinus pain, ear pain, sore throat RESPIRATORY: negative dyspnea, cough CARDIOVASCULAR: negative chest pain, palpitations GASTROINTESTINAL: negative nausea, vomiting, abdominal pain : negative dysuria, frequency, hematuria MUSCULOSKELETAL: Positive muscle or bony pain SKIN: negative rash, skin lesions NEUROLOGIC: negative weakness, numbness ROS Unobtainable: All systems reviewed & are unremarkable except as noted in HPI and below Patient History Medical History (Updated 08/12/23 @ 00:00 by ) History of COVID-19 (12/2022) Pulmonary embolism (07/2022) RBBB (right bundle branch block) Osteoarthritis History of esophageal dilatation GERD (gastroesophageal reflux disease) Surgical History (Updated 07/13/23 @ 13:42 by Rosibel Awad RN) 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 EYES: Pupils equal round EXTREMITIES: No gross deformities. Left hand is warm soft and pink with brisk cap refills light touch intact to fingers and thumb. Exposed portion of the left shoulder, ecchymotic skin postoperative changes. Bandage is clean and dry. No strike through bleeding. NEURO: AOx4. Clear speech. SKIN: Warm and dry PSYCH: Not anxious, is cooperative Initial Vital Signs Initial Vital Signs: Vital Signs Temperature 97.3 F L 07/28/23 06:57 Pulse Rate 94 H 07/28/23 06:57 Respiratory Rate 17 07/28/23 06:57 Blood Pressure 155/95 H 07/28/23 06:57 Pulse Oximetry 93 07/28/23 06:57 Oxygen Delivery Method Room Air 07/28/23 06:57 Course Orders Ordered: Discontinued Medications Ketorolac Tromethamine (Ketorolac 30 Mg/Ml Vial) 15 mg IV NOW ONE Stop: 07/28/23 07:22 Last Admin: 07/28/23 07:33 Dose: 15 mg Documented By: CTS Morphine Sulfate (Morphine 4 Mg/Ml Inj) 4 mg IV NOW ONE Stop: 07/28/23 07:22 Last Admin: 07/28/23 07:32 Dose: 4 mg Documented By: CTS Vital Signs Vital signs: Vital Signs - 8 hr 07/28/23 06:57 Temperature 97.3 F L Pulse Rate 94 H Respiratory Rate 17 Blood Pressure 155/95 H Pulse Oximetry 93 Oxygen Delivery Method Room Air MDM - Extremity (Nontraumatic) MDM Narrative Medical decision making narrative: Patient here with for complaints of left shoulder pain. Patient is postop day 1 status post left reverse total shoulder arthroplasty done here yesterday with Orthopedics. He states his pain was doing well. He had same procedure in his right shoulder last year and did well. However the anesthetic and nerve block wore off last night around 10:00 p.m.. Around 1:00 a.m./3:00 a.m. pain increased and he took his pain medication without relief. Currently pain 7/10. He thinks he should have taken his pain medication before they anesthetic/nerve block wore off. No complaints of hand pain. He states he is able to move his hand now after the anesthetic wore off. No fever. He was prescribed oxycodone 5 mg to take 1 tablet every 4-6 hours. However, he may need a higher dose, I reviewed with them taking 10 mg every 6 hours for the 1st 24 hours for pain control and then he can transition back to 5 mg every 4-6 hours. I will write him a prescription for 10 mg tablets for short course. After history and exam no blood work or imaging indicated. Patient only here for pain control as anesthetic wore off last night after surgery. No fever chills. MDM CC: Left shoulder pain Complicating co-morbidities: Surgery yesterday Data collected from: Patient and Medical records reviewed: Surgical notes from yesterday Differential considered: Includes but not limited to postoperative pain/cellulitis/dislocation/infection Exam documented above, pertinent findings include: And is warm soft and pink with strong sanitary aide. Light touch intact to hand and fingers Lab Test results independently reviewed as above. Pertinent findings: None indicated Imaging studies independently reviewed: None indicated Consultations: None indicated Treatments: Toradol morphine Re-evaluations: Reviewed with patient and treatment plan. They do agree with better pain control since anesthetic wore off. Discussion: Appropriate for discharge home. Patient did not have adequate pain control after anesthetic wore off yesterday. Short course of stronger pain medication appropriate. Return precautions reviewed with him. Not toxic at discharge. They desire discharge home Diagnosis: Postoperative pain Discharge Plan Departure Patient Disposition: Home Clinical Impression: Post-operative pain Instructions: DI for Postoperative Pain Activity Restrictions/Additional Instructions: Please see your orthopedic provider as scheduled. The pain after surgery is likely due to the anesthetic wearing off and needing better pain control with your prescribed pain medication. You have been prescribed a new pain medication strength, Percocet 10 mg tablet for short course duration. Once completed you may resume the pain medication prescribed by your orthopedic surgeon as needed. Return if worse if any questions or concerns. Prescriptions: New oxycodone-acetaminophen [Endocet] 10-325 mg tablet 1 tab PO Q6H PRN (Reason: pain) Qty: 10 0RF No Action omega 9-rah-jnd-fish oil [Fish Oil] 1,000 mg (120 mg-180 mg) Capsule 3 cap PO DAILY Qty: 0 simvastatin 20 MG tablet 20 mg PO HS Qty: 90 1RF naproxen sodium [Aleve] 220 mg Capsule 220 mg PO BID PRN (Reason: Pain) valacyclovir 1,000 MG tablet 1,000 mg PO BID PRN (Reason: Breakouts) omeprazole 20 MG capsule,delayed release(DR/EC) 20 mg PO QDAY sildenafil (pulm.hypertension) 20 MG tablet 20 mg PO DAILY PRN (Reason: Sexual Activity) acetaminophen 500 mg Tablet 1,000 mg PO DAILY PRN (Reason: Pain) Eliquis 5 mg Tablet 5 mg PO BID hydrocodone-acetaminophen 5-325 mg tablet 1 tab PO Q6H PRN (Reason: pain) Qty: 20 0RF ondansetron HCl 4 mg tablet 4 mg PO Q8H PRN (Reason: nausea and vomiting) Qty: 10 0RF Referrals: Constanza Iglesias MD [Primary Care Provider] - Stand Alone Forms: Patient Portal/API
[2023-07-28] MEDS: MORPHINE 4 MG/ML INJ IV (07:32)
[2023-07-28] MEDS: KETOROLAC 30 MG/ML VIAL 15 MG IV (07:33)
[2023-07-28 07:51] VITALS: BP 161/85; PULSE 88; RESP 16; O2SAT 94
== END 2023-07-28 07:56 | disposition home or self-care (01) ==
PROVIDERS: Emergency Provider Emergency Medicine; Family Provider Family Medicine; PCP Family Medicine
DX: G89.18 Other acute postprocedural pain (principal); Z96.612 Presence of left artificial shoulder joint; Z79.01 Long term (current) use of anticoagulants
CPT/HCPCS: 96374; 96375; 99283; 99284; J1885; J2270

== ENCOUNTER 2023-10-09 18:13 | Emergency (ER) | payer OTHER, SELFPAY ==
[2022-07-14 17:45] VITALS: BMI 29.3
[2023-10-09] VITALS (7 sets, daily range): BP systolic 127–186; BP diastolic 70–92; PULSE 73–80; RESP 18–28; TEMP 36.7; O2SAT 95–96; BMI 29.0
--- NOTE | 2023-10-09 18:46 | DI.CT.S_ITS ---
PROCEDURE: CT HEAD/BRAIN WO CON INDICATIONS: fall on thinners, hit head. TECHNIQUE: Noncontrast 4.5 mm thick angled axial sections acquired from the foramen magnum to the vertex, with coronal and sagittal reformats. For radiation dose reduction, the following was used: automated exposure control, adjustment of mA and/or kV according to patient size. COMPARISON: None. FINDINGS: Image quality: Diagnostic CSF spaces: Basal cisterns are patent. Lateral ventricles are symmetric. Volume: Vascular calcifications. Periventricular white matter disease is commonly seen with chronic microangiopathy. Volume loss is present. These findings are [id number] Brain: No gross loss of dyson-white differentiation. No acute hematoma. Craniofacial structures: Paranasal sinuses appear clear. IMPRESSION: No acute intracranial abnormality. Dictated by: Noel Foote M.D. on 10/09/2023 at 19:20 Approved by: Noel Foote M.D. on 10/09/2023 at 19:23
--- NOTE | 2023-10-09 18:46 | DI.CT.S_ITS ---
PROCEDURE: CT CERVICAL SPINE WO CON INDICATIONS: fall on thinners, hit head. TECHNIQUE: Noncontrast 3 mm thick sections acquired from the skull base to the T4 level. Sagittal and coronal reformats were then constructed. For radiation dose reduction, the following was used: automated exposure control, adjustment of mA and/or kV according to patient size. COMPARISON: None. FINDINGS: Image quality: Diagnostic Bones: There is straightening of the normal cervical lordosis. Moderate overall degenerative changes. No acute vertebral body height loss or traumatic subluxation. Soft tissues: No pathologic prevertebral soft tissue swelling. No apical pneumothorax. IMPRESSION: No displaced fracture or traumatic subluxation. Moderate degenerative changes. If there is high concern for further derangement, consider MRI evaluation. Dictated by: Noel Foote M.D. on 10/09/2023 at 19:25 Approved by: Noel Foote M.D. on 10/09/2023 at 19:27
--- NOTE | 2023-10-09 19:29 | ED.FALL ---
HPI - Fall General Chief Complaint: Fall Stated Complaint: cut chin when he fell Time Seen by Provider: 10/09/23 18:53 Source: patient and family Mode of arrival: Ambulatory Limitations: no limitations History of Present Illness HPI Narrative: 69-year-old male. Is on Eliquis. Arrives for evaluation of an injury that he sustained when he tripped over an object that was in his yd. He fell forward hitting his chin on some crab pots. He denied any loss of consciousness. No dental pain. No neck pain. No other injuries from the event. He states the cut on his chin does go all the way through to the inside. He is up-to-date on his tetanus. Prior to the fall did not have chest pain, shortness of breath, lightheadedness. Related Data Home Medications Medication Instructions Recorded Confirmed omega 8-ugy-swa-fish oil 1,000 mg 3 cap PO DAILY ##0 11/29/10 07/27/23 (120 mg-180 mg) capsule (Fish Oil) naproxen sodium 220 mg capsule 220 mg PO BID PRN Pain 07/11/22 07/27/23 (Aleve) omeprazole 20 mg capsule,delayed 20 mg PO QDAY 07/11/22 07/27/23 release sildenafil (pulm.hypertension) 20 20 mg PO DAILY PRN Sexual Activity 07/11/22 07/27/23 mg tablet valacyclovir 1 gram tablet 1,000 mg PO BID PRN Breakouts 07/11/22 07/27/23 acetaminophen 500 mg tablet 1,000 mg PO DAILY PRN Pain 07/13/23 07/27/23 apixaban 5 mg tablet (Eliquis) 5 mg PO BID 07/13/23 07/27/23 Previous Rx's Medication Instructions Recorded simvastatin 20 mg tablet 20 mg PO HS #90 tabs 01/31/17 hydrocodone 5 mg-acetaminophen 325 1 tab PO Q6H PRN pain #20 tabs 07/27/23 mg tablet ondansetron HCl 4 mg tablet 4 mg PO Q8H PRN nausea and 07/27/23 vomiting #10 tabs oxycodone-acetaminophen 10 mg-325 1 tab PO Q6H PRN pain #10 tabs 07/28/23 mg tablet (Endocet) Allergies Allergy/AdvReac Type Severity Reaction Status Date / Time pravastatin [PRAVASTATIN] Allergy Mild MYALGIAS Verified 07/27/23 11:05 Review of Systems Review of Systems Narrative: See HPI Patient History Medical History (Updated 10/09/23 @ 20:58 by Denny Curran DO) History of COVID-19 (12/2022) Pulmonary embolism (07/2022) RBBB (right bundle branch block) Osteoarthritis History of esophageal dilatation GERD (gastroesophageal reflux disease) Surgical History (Updated 07/13/23 @ 13:42 by Rosibel Awad RN) 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) H/O vasectomy Status post appendectomy History of tonsillectomy Family History Father Heart disease Grandmother Mental health problem Grandfather Mental health problem Social History household members: spouse Smoking Status: Never smoker alcohol intake: current Smoking Status: Never smoker alcohol intake frequency: 0-2 drinks per day Alcohol type: wine Substance Use Type: does not use Exam Initial Vital Signs Initial Vital Signs: Vital Signs Temperature 98.1 F 10/09/23 18:30 Pulse Rate 79 10/09/23 18:30 Respiratory Rate 18 10/09/23 18:30 Blood Pressure 186/92 H 10/09/23 18:30 Pulse Oximetry 96 10/09/23 18:30 Oxygen Delivery Method Room Air 10/09/23 18:30 Const General: cooperative and comfortable HENMT Head: normal to inspection and normocephalic Mouth: oral mucosae normal Teeth and gingiva: dentition normal Back/Spine/Pelvis Cervical Spine: No cervical spinal tenderness Skin Other: 4 cm laceration left-sided chin that does go all the way through into the buccal mucosa. No active bleeding. Neuro General: patient alert, patient awake and moves all extremities Speech: speech normal Extrem General: normal to inspection Other: No gross deformities Procedures Laceration Repair Laceration 1: Site: face Side (If applicable): left Size (cm): 4 Description: linear Local Anesthetic: lidocaine 1% and with epi Amount of anesthesia used (mL): 5 Pre-repair: wound explored and irrigated extensively Skin layer closed with: nylon Skin layer suture size: 5-0 Number of sutures: 10 Technique: simple, interrupted Course Orders Ordered: ED Orders 10/09/23 18:46 CT cervical spine wo con Stat CT head/brain wo con Stat Discontinued Medications Bacitracin (Bacitracin Oint 0.9 Gm Pckt) 1 applic TOP NOW ONE Stop: 10/09/23 20:58 Last Admin: 10/09/23 21:01 Dose: 1 applic Documented By: MAGNO Vital Signs Vital signs: Vital Signs - 8 hr 10/09/23 18:30 10/09/23 19:01 10/09/23 19:30 Temperature 98.1 F Pulse Rate 79 79 77 Respiratory Rate 18 26 H 28 H Blood Pressure 186/92 H Pulse Oximetry 96 95 96 Oxygen Delivery Method Room Air Room Air Room Air 10/09/23 19:30 10/09/23 20:00 10/09/23 20:00 Temperature Pulse Rate 73 Respiratory Rate 26 H Blood Pressure 140/88 148/81 H Pulse Oximetry 95 Oxygen Delivery Method Room Air 10/09/23 20:30 10/09/23 20:30 10/09/23 21:00 Temperature Pulse Rate 74 80 Respiratory Rate 22 23 Blood Pressure 127/82 Pulse Oximetry 95 96 Oxygen Delivery Method Room Air Room Air 10/09/23 21:01 10/09/23 21:01 Temperature Pulse Rate 80 Respiratory Rate 24 Blood Pressure 150/70 H Pulse Oximetry 96 Oxygen Delivery Method Room Air MDM - Fall Imaging Data CT scan - head: Radiologist's Impression: PROCEDURE: CT CERVICAL SPINE WO CON INDICATIONS: fall on thinners, hit head. TECHNIQUE: Noncontrast 3 mm thick sections acquired from the skull base to the T4 level. Sagittal and coronal reformats were then constructed. For radiation dose reduction, the following was used: automated exposure control, adjustment of mA and/or kV according to patient size. COMPARISON: None. FINDINGS: Image quality: Diagnostic Bones: There is straightening of the normal cervical lordosis. Moderate overall degenerative changes. No acute vertebral body height loss or traumatic subluxation. Soft tissues: No pathologic prevertebral soft tissue swelling. No apical pneumothorax. IMPRESSION: No displaced fracture or traumatic subluxation. Moderate degenerative changes. If there is high concern for further derangement, consider MRI evaluation. CT - cervical spine: Radiologist's Impression: PROCEDURE: CT HEAD/BRAIN WO CON INDICATIONS: fall on thinners, hit head. TECHNIQUE: Noncontrast 4.5 mm thick angled axial sections acquired from the foramen magnum to the vertex, with coronal and sagittal reformats. For radiation dose reduction, the following was used: automated exposure control, adjustment of mA and/or kV according to patient size. COMPARISON: None. FINDINGS: Image quality: Diagnostic CSF spaces: Basal cisterns are patent. Lateral ventricles are symmetric. Volume: Vascular calcifications. Periventricular white matter disease is commonly seen with chronic microangiopathy. Volume loss is present. These findings are [id number] Brain: No gross loss of dyson-white differentiation. No acute hematoma. Craniofacial structures: Paranasal sinuses appear clear. IMPRESSION: No acute intracranial abnormality. MDM Narrative Medical decision making narrative: From what the patient describes this was clearly a mechanical fall. He is on anticoagulation. Does have a cut to his chin. Was closed as described above. No other injuries reported by the patient nor found in the exam. Will discharge patient home care instructions and return precautions. He expressed understanding and agreement. Discharge Plan Departure Patient Disposition: Home Clinical Impression: Chin laceration Instructions: DI for Laceration Repair Activity Restrictions/Additional Instructions: You can put topical antibiotic ointment over the wound. Examples of this would be Neosporin or bacitracin. The stitches do need to be removed in 7-10 days. Your primary doctor or the walk-in clinic and do this. Return to the emergency department for new symptoms. Prescriptions: No Action omega 1-shj-nis-fish oil [Fish Oil] 1,000 mg (120 mg-180 mg) Capsule 3 cap PO DAILY Qty: 0 simvastatin 20 MG tablet 20 mg PO HS Qty: 90 1RF naproxen sodium [Aleve] 220 mg Capsule 220 mg PO BID PRN (Reason: Pain) valacyclovir 1,000 MG tablet 1,000 mg PO BID PRN (Reason: Breakouts) omeprazole 20 MG capsule,delayed release(DR/EC) 20 mg PO QDAY sildenafil (pulm.hypertension) 20 MG tablet 20 mg PO DAILY PRN (Reason: Sexual Activity) acetaminophen 500 mg Tablet 1,000 mg PO DAILY PRN (Reason: Pain) Eliquis 5 mg Tablet 5 mg PO BID hydrocodone-acetaminophen 5-325 mg tablet 1 tab PO Q6H PRN (Reason: pain) Qty: 20 0RF ondansetron HCl 4 mg tablet 4 mg PO Q8H PRN (Reason: nausea and vomiting) Qty: 10 0RF oxycodone-acetaminophen [Endocet] 10-325 mg tablet 1 tab PO Q6H PRN (Reason: pain) Qty: 10 0RF Referrals: Constanza Iglesias MD [Primary Care Provider] - Stand Alone Forms: Patient Portal/API
[2023-10-09] MEDS: BACITRACIN OINT 0.9 GM PCKT 1 APPLIC TOP (21:01)
--- NOTE | 2023-10-09 21:11 | PC.NURSE ---
Put bacitracin on wound after Dr. Curran sutured it and covered with bandaid.
== END 2023-10-09 21:14 | disposition home or self-care (01) ==
PROVIDERS: Emergency Provider Emergency Medicine; Family Provider Family Medicine; PCP Family Medicine
DX: S01.81XA Laceration without foreign body of other part of head, initial encounter (principal); R03.0 Elevated blood-pressure reading, without diagnosis of hypertension; W01.198A Fall on same level from slipping, tripping and stumbling with subsequent striking against other object, initial encounter; Z79.01 Long term (current) use of anticoagulants
CPT/HCPCS: 12013; 70450; 72125; 93005; 99283; 99284